=== PATIENT | female | born 1965 | race Hispanic/Latino ===

== ENCOUNTER 2016-09-17 06:55 | Day surgery (SDC) | payer OTHER ==
[~2016-09-17] VITALS: Ht 162.6 cm; Wt 83.2 kg
[~2016-09-17 06:55] MED LIST: ANTIVERT25 MG PO; LEVOTHYROXINE75 MCG PO; MOTRIN800 MG PO; SULFASALAZINE500 MG PO; VOLTAREN50 MG PO
[2016-09-17 07:54] VITALS: BP 132/75
[2016-09-17] MEDS ORDERED: MOTRIN800 MG PO (08:52)
[2016-09-17] MEDS ORDERED: VICODIN 5-3001 EACH PO (08:52)
[2016-09-17 11:00] VITALS: BP 137/84
[2016-09-17 11:54] VITALS: BP 133/91
[2016-09-17 12:42] VITALS: BP 135/88
== END 2016-09-17 12:50 | disposition home or self-care (01) ==
LOC: SDC 06:55
PROC: 0UDB8ZX Extraction of Endometrium, Via Natural or Artificial Opening Endoscopic, Diagnostic (ICD-10-PCS; principal; 2016-09-17)
PROC: 0U5B8ZZ Destruction of Endometrium, Via Natural or Artificial Opening Endoscopic (ICD-10-PCS; principal; 2016-09-17)
PROC: 0UB98ZX Excision of Uterus, Via Natural or Artificial Opening Endoscopic, Diagnostic (ICD-10-PCS; principal; 2016-09-17)
DX: N84.0 Polyp of corpus uteri (principal); N93.8 Other specified abnormal uterine and vaginal bleeding; E03.9 Hypothyroidism, unspecified; M06.9 Rheumatoid arthritis, unspecified
CPT/HCPCS: 88305; J1100; J1885; J2250; J2405; J2765; J3010

== ENCOUNTER 2017-03-11 17:03 | Emergency (ER) | payer OTHER ==
[~2017-03-11] VITALS: Ht 162.6 cm; Wt 71.2 kg
[~2017-03-11 17:03] MED LIST changes: +VICODIN 5-3001 EACH PO
[2017-03-11 17:46] LABS: ADD MIUA? YES; BILIRUBIN NEGATIVE; BLOOD LARGE; COLOR AMBER ((YELLOW)); GLUCOSE (STRIP) NEGATIVE; KETONES 5; LEUKOCYTES SMALL; NITRITE POSITIVE; PROTEIN (STRIP) 100
[2017-03-11] MEDS ORDERED: MOTRIN800 MG PO (18:46)
[2017-03-11] MEDS ORDERED: PYRIDIUM200 MG PO (18:46)
[2017-03-11] MEDS ORDERED: KEFLEX500 MG PO (18:46)
[2017-03-11 18:53] LABS: RED BLOOD CELLS TNTC /HPF (0-5); UCUL ADDED? YES
[2017-03-11 19:10] VITALS: BP 131/86
== END 2017-03-11 19:11 | disposition home or self-care (01) ==
LOC: EME 17:03
DX: N39.0 Urinary tract infection, site not specified (principal); Z87.440 Personal history of urinary (tract) infections; E03.9 Hypothyroidism, unspecified
CPT/HCPCS: 81003; 87086; 99281; 99284